=== PATIENT | female | born 2000 | race Caucasian/White ===

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

== ENCOUNTER 2020-02-17 09:41 | Emergency (ER) | payer OTHER ==
--- NOTE | 2020-02-17 09:44 | ERPHSYRPT ---
- History of Present Illness Time Seen by Provider: 02/17/20 09:44 Historian: patient, family Exam Limitations: no limitations Physician History: An obese 19-year-old white female who has an implantable control device and presents with at least 1 month history of intermittent bilateral flank pain. Patient sees her primary care physician tomorrow. Patient denies nausea vomiting, diarrhea or abdominal pain. She does have occasional dysuria. Patient denies chest pain patient denies shortness of breath. Patient has no myalgias no arthralgias. She is had no fever. She has no abnormal vaginal discharge Timing/Duration: week(s) (Over 4 weeks), intermittent Quality: aching Abdominal Pain Onset Location: flank Pain Radiation: flank (Bilateral) Severity of Pain-Max: mild Severity of Pain-Current: mild (bilateral) Modifying Factors: Improves With: other (Dysuria). Worsens With: vomiting Associated Symptoms: back (Bilateral flank), other (Dysuria) Previous symptoms: same symptoms as today Allergies/Adverse Reactions: haloperidol [From Haldol] Allergy (Verified 02/17/20 10:02) haloperidol lactate [From Haldol] Allergy (Verified 02/17/20 10:02) sulfamethoxazole [From Bactrim] Allergy (Verified 02/17/20 10:02) trimethoprim [From Bactrim] Allergy (Verified 02/17/20 10:02) Hx Tetanus, Diphtheria Vaccination/Date Given: No Hx Influenza Vaccination/Date Given: No Hx Pneumococcal Vaccination/Date Given: No Travel Risk - International Travel Have you traveled outside of the country in past 3 weeks: No - Coronavirus Screening Are you exhibiting any of the following symptoms?: No Close contact with a COVID-19 positive Pt in past 14-21 Days: No - Review of Systems Constitutional: No Symptoms Eyes: No Symptoms Ears, Nose, & Throat: No Symptoms Respiratory: No Symptoms Cardiac: No Symptoms Abdominal/Gastrointestinal: No Symptoms Genitourinary Symptoms: Dysuria Musculoskeletal: No Symptoms Skin: No Symptoms Neurological: No Symptoms Psychological: No Symptoms Endocrine: No Symptoms Hematologic/Lymphatic: No Symptoms Immunological/Allergic: No Symptoms All Other Systems: Reviewed and Negative - Past Medical History Pertinent Past Medical History: Yes Neurological History: No Pertinent History ENT History: No Pertinent History Cardiac History: No Pertinent History Respiratory History: Asthma Endocrine Medical History: No Pertinent History Musculoskeletal History: No Pertinent History GI Medical History: No Pertinent History History: No Pertinent History Psycho-Social History: Anxiety, Attention Deficit Disorder Female Reproductive Disorders: No Pertinent History Other Medical History: AUTISM, OPPOSITIONAL DEFIANT DISORDER - Past Surgical History Past Surgical History: Yes Neuro Surgical History: No Pertinent History Cardiac: No Pertinent History Respiratory: No Pertinent History Gastrointestinal: No Pertinent History Genitourinary: No Pertinent History Musculoskeletal: No Pertinent History Female Surgical History: No Pertinent History Other Surgical History: TONSILS AND ADENOIDS - Social History Smoking Status: Never smoker Exposure to second hand smoke: Yes Drug Use: none Patient Lives Alone: No - Nursing Vital Signs Nursing Vital Signs: Initial Vital Signs Temperature 98.1 F 02/17/20 09:47 Pulse Rate 66 02/17/20 09:47 Respiratory Rate 16 02/17/20 09:47 Blood Pressure 111/70 02/17/20 09:47 O2 Sat by Pulse Oximetry 97 02/17/20 09:47 Pain Scale Pain Intensity 4 - Physical Exam General Appearance: no apparent distress, alert, anxiety, obese Eye Exam: PERRL/EOMI, eyes nml inspection Ears, Nose, Throat Exam: normal ENT inspection, moist mucous membranes Neck Exam: normal inspection, non-tender, supple, full range of motion Respiratory Exam: normal breath sounds, lungs clear, airway intact, No chest tenderness, No respiratory distress Cardiovascular Exam: regular rate/rhythm, normal heart sounds, normal peripheral pulses Gastrointestinal/Abdomen Exam: soft, normal bowel sounds, No tenderness, No guarding Pelvic Exam: not done Rectal Exam: not done Back Exam: normal inspection, CVA tenderness (Lateral), No normal range of motion, No vertebral tenderness Extremity Exam: normal inspection, normal range of motion, pelvis stable Neurologic Exam: alert, oriented x 3, cooperative, 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 II-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 nml as tested, normal mood/affect, nml cerebellar function (He did call), nml station & gait Skin Exam: normal color, warm, dry Lymphatic Exam: No adenopathy SpO2 Interpretation: normal O2 Delivery: Room Air Ordered Tests: Active Orders 24 hr Category Date Time Status IV Insertion STAT Care 02/17/20 10:10 Active ABDOMEN AND PELVIS W/0 CONTRAS [CT] Stat Exams 02/17/20 10:10 Completed AMYLASE Stat Lab 02/17/20 10:50 Completed CBC W DIFF Stat Lab 02/17/20 10:50 Completed CMP Stat Lab 02/17/20 10:50 Completed LIPASE Stat Lab 02/17/20 10:50 Completed Lactic Acid Stat Lab 02/17/20 10:10 Completed UA W/RFX UR CULTURE Stat Lab 02/17/20 10:10 Uncollected Medication Summary Discontinued Medications Generic Name Dose Route Start Last Admin Trade Name Freq PRN Reason Stop Dose Admin Sodium Chloride 1,000 mls @ 999 mls/hr 02/17/20 10:10 Sodium Chloride 0.9% 1000 Ml IV 02/17/20 11:10 .Q1H1M STA Lab/Rad Data: Laboratory Result Diagrams 02/17/20 10:50 02/17/20 10:50 Laboratory Results 02/17/20 02/17/20 02/17/20 Range/Units 10:50 10:50 10:10 WBC 9.2 (4.0-10.5) K/mm3 RBC 4.95 (4.1-5.4) M/mm3 Hgb 13.3 (12.0-16.0) gm/dl Hct 41.6 (35-47) % MCV 84.0 (78-100) fl MCH 26.9 (26-32) pg MCHC 32.0 (32-36) g/dl RDW 13.7 (11.5-14.0) % Plt Count 244 (150-450) K/mm3 MPV 11.8 H (7.5-11.0) fl Gran % 63.7 (36.0-66.0) % Eos # (Auto) 0.36 (0-0.5) Absolute Lymphs (auto) 2.34 (1.0-4.6) Absolute Monos (auto) 0.61 (0.0-1.3) Lymphocytes % 25.5 (24.0-44.0) % Monocytes % 6.7 (0.0-12.0) % Eosinophils % 3.9 (0.00-5.0) % Basophils % 0.2 (0.0-0.4) % Absolute Granulocytes 5.83 (1.4-6.9) Basophils # 0.02 (0-0.4) Sodium 140 (137-145) mmol/L Potassium 4.5 (3.5-5.1) mmol/L Chloride 108 H (98-107) mmol/L Carbon Dioxide 25 (22-30) mmol/L Anion Gap 11.7 (5-15) MEQ/L BUN 8 (7-17) mg/dL Creatinine 0.69 (0.52-1.04) mg/dL Estimated GFR > 60.0 ML/MIN Glucose 103 (74-106) mg/dL Lactic Acid 1.3 (0.4-2.0) Calcium 9.3 (8.4-10.2) mg/dL Total Bilirubin 0.40 (0.2-1.3) mg/dL AST 19 (14-36) U/L ALT 14 (0-35) U/L Alkaline Phosphatase 97 (38-126) U/L Serum Total Protein 7.2 (6.3-8.2) g/dL Albumin 4.1 (3.5-5.0) g/dL Amylase 50 (30-110) U/L Lipase 68 (23-300) U/L - Progress Progress: unchanged Progress Note: 02/17/20 11:40 ct abd/pelvis: negative for acute process Counseled pt/family regarding: lab results, diagnosis, need for follow-up, rad results - Departure Departure Disposition: Home Clinical Impression: Bilateral flank pain Condition: Stable Critical Care Time: No Referrals: MARIA LUISA LUU [Primary Care Provider] - Additional Instructions: drink plenty of fluids. keep appointment with primary care physician
[2020-02-17 10:01] VITALS: O2SAT 97
[2020-02-17] MEDS ORDERED: Sodium Chloride 0.9% 1000 ML 1,000 ML IV STA (10:10)
[2020-02-17 11:04] LABS: Absolute Neutrophil Ct (ANC) 5.83 (1.4-6.9); BASOPHIL % 0.2 % (0.0-0.4); Basophil (Absolute #) 0.02 (0-0.4); Eosinophil % 3.9 % (0.00-5.0); Eosinophil (Absolute #) 0.36 (0-0.5); Hematocrit 41.6 % (35-47); Hemoglobin 13.3 gm/dl (12.0-16.0); Lymphocyte (Absolute #) 2.34 (1.0-4.6); Lymphocytes % 25.5 % (24.0-44.0); Mean Corpuscular Hemoglobin 26.9 pg (26-32); Mean Platelet Volume 11.8 fl (7.5-11.0); Monocyte (Absolute #) 0.61 (0.0-1.3); Monocytes % 6.7 % (0.0-12.0); Neutrophil % 63.7 % (36.0-66.0); Platelet Count 244 K/mm3 (150-450); Red Blood Count 4.95 M/mm3 (4.1-5.4); Red Cell Distribution Width 13.7 % (11.5-14.0); White Blood Count 9.2 K/mm3 (4.0-10.5)
[2020-02-17 11:15] LABS: ALBUMIN 4.1 g/dL (3.5-5.0); ALKALINE PHOSPHATASE 97 U/L (38-126); AMYLASE 50 U/L (30-110); ANION GAP 11.7 MEQ/L (5-15); BLOOD UREA NITROGEN 8 mg/dL (7-17); CHLORIDE 108 mmol/L (98-107); Calcium 9.3 mg/dL (8.4-10.2); Carbon Dioxide 25 mmol/L (22-30); Creatinine 1 0.69 mg/dL (0.52-1.04); Glucose 103 mg/dL (74-106); LIPASE 68 U/L (23-300); Potassium 4.5 mmol/L (3.5-5.1); SGOT/AST 19 U/L (14-36); SGPT/ALT 14 U/L (0-35); SODIUM 140 mmol/L (137-145); Total Protein 7.2 g/dL (6.3-8.2)
--- NOTE | 2020-02-17 11:32 | XRAY ---
Indication: Bilateral flank pain. Multiple contiguous axial images obtained through the abdomen and pelvis without contrast using renal stone protocol. Comparison: None Lung bases are clear. Heart is not enlarged. No renal calculus or evidence for obstructive uropathy in either system. 1.7 cm left renal cortical cyst. Noncontrasted stomach and bowel loops appear nonobstructed. Normal appendix. Previous cholecystectomy. Spleen is enlarged measuring 13.1 cm. Remaining liver, pancreas, spleen, adrenal glands, kidneys, ureters, bladder, uterus, and aorta appear unremarkable for noncontrast exam. Osseous structures intact. No ventral or inguinal hernias. Impression: 1. Negative renal calculus or evidence for obstructive uropathy. 2. Incidental left renal cyst and splenomegaly. 3. Remaining CT abdomen/pelvis without contrast exam is negative.
[2020-02-17 11:55] VITALS: BP 110/68; PULSE 90
[2020-02-17 12:06] LABS: Appearance SLIGHTLY CLOUDY (CLEAR); Bacteria RARE /HPF (NEGATIVE); Bilirubin NEGATIVE (NEGATIVE); Blood LARGE Ery/ul (0-5); Epithelial Cells RARE /HPF (FEW); Glucose NEGATIVE (NEGATIVE); Ketones NEGATIVE (NEGATIVE); Leukocyte Esterase NEGATIVE (NEGATIVE); Mucus SLIGHT /HPF (NEGATIVE); Nitrite NEGATIVE (NEGATIVE); Protein,Urine Dip NEGATIVE (Negative); RBC 0-2 /HPF (0-2); Specific Gravity 1.015 (1.005-1.025); Urobilinogen NEGATIVE mg/dL (0-1)
== END 2020-02-17 12:24 | disposition home or self-care (01) ==
LOC: ED 09:41
DX: R10.9 Unspecified abdominal pain (principal)
CPT/HCPCS: 36415; 74176; 80053; 81001; 82150; 83605; 83690; 85025; 87086; 99284

== ENCOUNTER 2021-07-11 09:19 | Emergency (ER) | payer OTHER ==
[2021-07-11] MEDS ORDERED: Reglan 10 MG/2 ML ONE (10:20)
[2021-07-11] MEDS ORDERED: TORAdol 30 mg Injection ONE (10:20)
[2021-07-11] MEDS: TORAdol 30 mg Injection IM ONE (10:22)
[2021-07-11] MEDS: Reglan 10 MG/2 ML IM ONE (10:23)
--- NOTE | 2021-07-11 10:32 | ERPHSYRPT ---
- History of Present Illness Time Seen by Provider: 07/11/21 09:22 Source: patient Exam Limitations: no limitations Patient Subjective Stated Complaint: " I started a new medication for my diabetes yesterday and I think it's making me sick. I have a headache, nausea, and I feel dizzy." Triage Nursing Assessment: Pt presents to ER with complaints of headache, nausea, and lightheadedness/dizziness that has increased since yesterday. Pt believes symptoms are from new medication she began yesterday, "Xigduo". Pt is alert and oriented x3. Ambulates without difficulty. Pt skin is pink, warm, and dry. Respirations are unlabored. Denies vomiting or diarrhea. Pt is pleasant and denies pain. Physician History: 20 years old morbidly obese female with history of diabetes mellitus on Ozempic and yesterday was started on Xigduo as well, presented in the ER with chief complaint of right-sided headache since yesterday after taking this new medication off and on, partial relief with taking Tylenol and occasional having episodes of lightheadedness. Denies any focal numbness tingling or weakness. Mild to moderate intensity dull aching headache without any significant aggravating factors. Denies any chest pain palpitations or shortness of breath. Patient also reports she was feeling a little shaky when woke up this morning and checked her blood sugar which was 102 and usually her blood 50s in the morning. Her headache is improved now and not shaky anymore. Timing/Duration: yesterday, intermittent, gradual onset, improved Quality: dullness Head Pain Location: frontal Severity of Pain-Max: moderate Severity of Pain-Current: moderate Recent Head Trauma: no recent headache/trauma Associated Symptoms: dizziness, light-headedness, nausea/vomiting, No facial pain, No fever/chills, No loss of consciousness, No nasal congestion, No nasal drainage, No neck pain, No numbness in legs/feet, No rash, No sweating, No scotoma, No seizures, No sinus infection, No sensitive to light, No speech problems, No stiff neck, No trouble walking, No vision changes, No visual disturbance, No weakness Previous symptoms: no prior history Allergies/Adverse Reactions: haloperidol [From Haldol] Allergy (Verified 07/11/21 09:40) haloperidol lactate [From Haldol] Allergy (Verified 07/11/21 09:40) sulfamethoxazole [From Bactrim] Allergy (Verified 07/11/21 09:40) trimethoprim [From Bactrim] Allergy (Verified 07/11/21 09:40) Home Medications: Bupropion HCl [Wellbutrin Xl] 1 tab PO DAILY 07/11/21 [History] Dapagliflozin/Metformin HCl [Xigduo Xr 10 mg-1,000 mg Tab] 1 tab PO DAILY 07/11/21 [History] Mecobalamin [B12 Active] 1 tab PO DAILY 07/11/21 [History] Semaglutide [Ozempic] 1 kit SQ WEEKLY 07/11/21 [History] Hx Tetanus, Diphtheria Vaccination/Date Given: Yes Hx Influenza Vaccination/Date Given: Yes Hx Pneumococcal Vaccination/Date Given: No Immunizations Up to Date: Yes Travel Risk - International Travel Have you traveled outside of the country in past 3 weeks: No - Coronavirus Screening Are you exhibiting any of the following symptoms?: No - Vaccine Status Have you recieved a Covid-19 vaccination: Yes Sales Review 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: Unknown - Vaccination Dates Dates if Unknown: unknown - Review of Systems Constitutional: Fatigue Eyes: No Symptoms Ears, Nose, & Throat: No Symptoms Respiratory: No Symptoms Cardiac: No Symptoms Abdominal/Gastrointestinal: No Symptoms Genitourinary Symptoms: No Symptoms Musculoskeletal: No Symptoms Skin: No Symptoms Neurological: Dizziness, Focal Weakness Psychological: Anxiety Endocrine: No Symptoms Hematologic/Lymphatic: No Symptoms Immunological/Allergic: No Symptoms - Past Medical History Pertinent Past Medical History: Yes Neurological History: No Pertinent History ENT History: No Pertinent History Cardiac History: No Pertinent History Respiratory History: Asthma Endocrine Medical History: Diabetes Type II Musculoskeletal History: No Pertinent History GI Medical History: No Pertinent History History: No Pertinent History Psycho-Social History: Anxiety, Attention Deficit Disorder Female Reproductive Disorders: No Pertinent History Other Medical History: AUTISM, OPPOSITIONAL DEFIANT DISORDER - Past Surgical History Past Surgical History: Yes Neuro Surgical History: No Pertinent History Cardiac: No Pertinent History Respiratory: No Pertinent History Gastrointestinal: Cholecystectomy Genitourinary: No Pertinent History Musculoskeletal: No Pertinent History Female Surgical History: No Pertinent History Other Surgical History: TONSILS AND ADENOIDS - Social History Smoking Status: Never smoker Exposure to second hand smoke: No Drug Use: none Patient Lives Alone: No - Female History Hx Last Menstrual Period: 06/23/21 Hx Now: No - Nursing Vital Signs Nursing Vital Signs: Initial Vital Signs Temperature 98.7 F 07/11/21 09:36 Pulse Rate 98 H 07/11/21 09:36 Respiratory Rate 18 07/11/21 09:36 Blood Pressure 116/84 07/11/21 09:36 O2 Sat by Pulse Oximetry 99 07/11/21 09:36 Pain Scale Pain Intensity 0 - Physical Exam General Appearance: no apparent distress, alert, anxiety Eye Exam: PERRL/EOMI, eyes nml inspection Ears, Nose, Throat Exam: normal ENT inspection, pharynx normal Neck Exam: normal inspection, non-tender, supple, full range of motion Respiratory Exam: normal breath sounds, lungs clear Cardiovascular Exam: regular rate/rhythm, normal heart sounds Gastrointestinal/Abdominal Exam: soft, No tenderness Back Exam: normal inspection, normal range of motion Extremity Exam: normal inspection, normal range of motion Mental Status Exam: alert, oriented x 3, cooperative scalp treatment operator Exam: normal hearing, normal speech, PERRL Coordination/Gait Exam: normal finger to nose, normal gait, normal cerebellar function, negative Romberg's sign Motor/Sensory Exam: no motor deficit, no sensory deficit, no pronator drift, negative Babinski's sign DTR Exam: bicep (R): 2+, bicep (L): 2+, knee (R): 2+, knee (L): 2+ Skin Exam: normal color SpO2 Interpretation: normal SpO2: 99 O2 Delivery: Room Air Ordered Tests: Active Orders 24 hr Category Date Time Status POCT Glucose Check STAT Care 07/11/21 10:32 Active POCT GLUCOSE Stat Lab 07/11/21 11:09 Completed Medication Summary Discontinued Medications Generic Name Dose Route Start Last Admin Trade Name Enmanuel PRN Reason Stop Dose Admin Ketorolac Tromethamine 30 mg 07/11/21 10:04 07/11/21 10:22 Ketorolac Tromethamine 30 Mg/Ml Inj IM 07/11/21 10:05 30 mg STAT ONE Administration Ketorolac Tromethamine Confirm 07/11/21 10:20 Ketorolac Tromethamine 30 Mg/Ml Inj Administered 07/11/21 10:21 Dose 30 mg .ROUTE .STK-MED ONE Metoclopramide HCl 10 mg 07/11/21 10:04 07/11/21 10:23 Metoclopramide Hcl 10 Mg/2 Ml Vial IM 07/11/21 10:05 10 mg STAT ONE Administration Metoclopramide HCl Confirm 07/11/21 10:20 Metoclopramide Hcl 10 Mg/2 Ml Vial Administered 07/11/21 10:21 Dose 10 mg .ROUTE .STK-MED ONE Lab/Rad Data: Laboratory Results 07/11/21 Range/Units 11:09 POC Glucometer 80 (74 to 106) mg/dL - Progress Progress: improved Air Movement: good Progress Note: 20-year-old is evaluated for headache nausea and some dizziness after taking Xigduo along with Ozempic. It is a known side effect of taking this medication with another antidiabetic meds. Her blood sugar is is 81 and given oral liquid with sugar and feeling better. I believe patient blood sugar was staying high and today was low making her Feels shaky. She is given symptomatic treatment for headache and feeling better. Nonfocal neuro exam. Do not think needs any other work-up. Recommended calling her primary edge beader Dr. Mayen and discussed the symptoms and see what he recommends about continuation of this medication. Discussed on symptoms of worsening needing return to ER which he seems understanding. Stable for discharge. 07/11/21 11:14 Blood Culture(s) Obtained: No Antibiotics given: No Counseled pt/family regarding: lab results, diagnosis, need for follow-up - Departure Departure Disposition: Home Clinical Impression: Medication side effect, Headache Condition: Stable Critical Care Time: No Referrals: MARIA LUISA GUNN [Primary Care Provider] - Follow up/PCP as directed (1-2 days for reevaluation) MADDIE MAYEN [NON-STAFF PHY W/O PRIVILEGES] - Follow up/PCP as directed (Call today and discussed the medication side effect and follow his recommendations.) Instructions: Headache, Adult (DC) Additional Instructions: Take Tylenol/ibuprofen as needed for headache. Call your edge beader to discuss about the side effects and continuation of medications. Follow-up with primary care for reevaluation. Monitor your blood sugar regularly, return to ER for worsening headache or if having numbness tingling focal weakness etc.
[2021-07-11 11:18] VITALS: BP 106/61; PULSE 86; O2SAT 95
== END 2021-07-11 11:21 | disposition home or self-care (01) ==
LOC: ED 09:19
DX: G44.40 Drug-induced headache, not elsewhere classified, not intractable (principal); T38.3X5A Adverse effect of insulin and oral hypoglycemic [antidiabetic] drugs, initial encounter; R42 Dizziness and giddiness; R11.0 Nausea; E11.8 Type 2 diabetes mellitus with unspecified complications; Z79.84 Long term (current) use of oral hypoglycemic drugs
CPT/HCPCS: 82947; 96372; 99284; J1885

== ENCOUNTER 2021-07-27 16:48 | Emergency (ER) | payer OTHER ==
[2021-07-27] MEDS ORDERED: TORAdol 30 mg Injection IM ONE (17:34)
--- NOTE | 2021-07-27 17:36 | ERPHSYRPT ---
<BRENDAVALENTEMAGNO FIGUEROA - Last Filed: 07/27/21 20:23> - History of Present Illness Patient Subjective Stated Complaint: "My throat hurts." Triage Nursing Assessment: Patient reported a four day onset of sore throat and. She reported fever at home with reported Tmax of 98.8. Pain was described as s harp. Denied any recent sick contacts. Oral mucosa reddened Timing/Duration: day(s) (3), constant, gradual onset, worse Cough Quality/Degree: mild, dry cough Possible Cause: unknown cause Modifying Factors: Worsens With: coughing Associated Symptoms: fever, chills, cough, headache, muscle aches, nasal congestion, sinus infection, sore throat Hx Tetanus, Diphtheria Vaccination/Date Given: Yes Hx Influenza Vaccination/Date Given: Yes Hx Pneumococcal Vaccination/Date Given: No <BELKYS ARANA - Last Filed: 07/28/21 21:37> - History of Present Illness Time Seen by Provider: 07/27/21 16:55 Physician History: 20 years old vaccinated against COVID-19 presented in the ER with chief complaint of sore throat for the last 3 to 4 days with associated minimal nonproductive cough with difficulty swallowing solid food. Subjective feeling of fever and chills. Generalized body aches, headache. (BELKYS ARANA) Allergies/Adverse Reactions: haloperidol [From Haldol] Allergy (Verified 07/27/21 16:58) haloperidol lactate [From Haldol] Allergy (Verified 07/27/21 16:58) sulfamethoxazole [From Bactrim] Allergy (Verified 07/27/21 16:58) trimethoprim [From Bactrim] Allergy (Verified 07/27/21 16:58) Home Medications: Bupropion HCl [Wellbutrin Xl] 1 tab PO DAILY 07/11/21 [History] Mecobalamin [B12 Active] 1 tab PO DAILY 07/11/21 [History] Semaglutide [Ozempic] 1 kit SQ WEEKLY 07/11/21 [History] Travel Risk - International Travel Have you traveled outside of the country in past 3 weeks: No - Coronavirus Screening Are you exhibiting any of the following symptoms?: No Close contact with a COVID-19 positive Pt in past 14-21 Days: No - Vaccine Status Have you recieved a Covid-19 vaccination: 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[employer] Dates Date of 2cond Vaccination (if applicable): 04/2021 <BELKYS ARANA - Last Filed: 07/28/21 21:37> - Review of Systems Respiratory: No Dyspnea, No Stridor, No Wheezing <BRENDAVALENTE HENRY - Last Filed: 07/27/21 20:23> - Review of Systems Constitutional: Fever, Chills Eyes: No Symptoms Ears, Nose, & Throat: Throat Pain, Throat Swelling, Painful Swallowing Respiratory: Cough Cardiac: No Symptoms Abdominal/Gastrointestinal: No Symptoms Genitourinary Symptoms: No Symptoms Musculoskeletal: Myalgias Skin: No Symptoms Neurological: No Symptoms Psychological: Anxiety Endocrine: No Symptoms Hematologic/Lymphatic: No Symptoms Immunological/Allergic: No Symptoms <BELKYS ARANA - Last Filed: 07/28/21 21:37> - Past Medical History Pertinent Past Medical History: Yes Neurological History: No Pertinent History ENT History: No Pertinent History Cardiac History: No Pertinent History Respiratory History: Asthma Endocrine Medical History: Diabetes Type II Musculoskeletal History: No Pertinent History GI Medical History: No Pertinent History History: No Pertinent History Psycho-Social History: Anxiety, Attention Deficit Disorder Female Reproductive Disorders: No Pertinent History Other Medical History: AUTISM, OPPOSITIONAL DEFIANT DISORDER - Past Surgical History Past Surgical History: Yes Neuro Surgical History: No Pertinent History Cardiac: No Pertinent History Respiratory: No Pertinent History Gastrointestinal: Cholecystectomy Genitourinary: No Pertinent History Musculoskeletal: No Pertinent History Female Surgical History: No Pertinent History Other Surgical History: TONSILS AND ADENOIDS - Social History Smoking Status: Never smoker Exposure to second hand smoke: No Drug Use: none Patient Lives Alone: No - Female History Hx Now: (unkn) <BELKYS ARANA - Last Filed: 07/28/21 21:37> - Physical Exam General Appearance: no apparent distress, alert, anxiety Eye Exam: PERRL/EOMI, eyes nml inspection Ears, Nose, Throat Exam: moist mucous membranes, pharyngeal erythema Neck Exam: normal inspection, supple, full range of motion Respiratory Exam: normal breath sounds, lungs clear Cardiovascular Exam: regular rate/rhythm, normal heart sounds Back Exam: normal inspection, normal range of motion Extremity Exam: normal inspection, normal range of motion Neurologic Exam: alert, oriented x 3, cooperative Skin Exam: normal color SpO2 Interpretation: normal SpO2: 100 O2 Delivery: Room Air <BELKYS ARANA - Last Filed: 07/28/21 21:37> - Nursing Vital Signs Nursing Vital Signs: Initial Vital Signs Temperature 99.1 F 07/27/21 16:48 Pulse Rate 99 H 07/27/21 16:48 Respiratory Rate 20 07/27/21 16:48 Blood Pressure 131/79 07/27/21 16:48 O2 Sat by Pulse Oximetry 100 07/27/21 16:48 Pain Scale Pain Intensity 4 - Course Nursing assessment & vital signs reviewed: Yes - Radiology Exams Chest X-ray Interpretation: Reviewed by me, Other (no major infiltrate but possible scattered interstitial) <VALENTE GUTIERREZ - Last Filed: 07/27/21 20:23> Ordered Tests: Medication Summary Discontinued Medications Generic Name Dose Route Start Last Admin Trade Name Freq PRN Reason Stop Dose Admin Hydrocodone Bitart/Acetaminophen 15 ml 07/27/21 19:20 07/27/21 19:33 Hydrocodone/Acetaminophen 5 Ml Udcup PO 07/27/21 19:21 15 ml STAT STA Administration Hydrocodone Bitart/Acetaminophen Confirm 07/27/21 19:30 Hydrocodone/Acetaminophen 5 Ml Udcup Administered 07/27/21 19:31 Dose 15 ml .ROUTE .STK-MED ONE Azithromycin 500 mg 07/27/21 19:41 07/27/21 19:44 Azithromycin 250 Mg Tablet PO 07/27/21 19:42 500 mg STAT ONE Administration Azithromycin Confirm 07/27/21 19:44 Azithromycin 250 Mg Tablet Administered 07/27/21 19:45 Dose 500 mg .ROUTE .STK-MED ONE Dexamethasone 6 mg 07/28/21 10:00 07/27/21 20:36 Dexamethasone 4 Mg Tablet PO 08/27/21 09:59 6 mg DAILY NICHOLAS Administration Dexamethasone Confirm 07/27/21 20:33 Dexamethasone 4 Mg Tablet Administered 07/27/21 20:34 Dose 8 mg .ROUTE .STK-MED ONE Dexamethasone Sodium Phosphate 10 mg 07/27/21 19:20 07/27/21 19:33 Dexamethasone Sod Phosphate 10 Mg/Ml PO 07/27/21 19:21 10 mg STAT ONE Administration Dexamethasone Sodium Phosphate Confirm 07/27/21 19:30 Dexamethasone Sod Phosphate 10 Mg/Ml Administered 07/27/21 19:31 Dose 10 mg .ROUTE .STK-MED ONE Ketorolac Tromethamine 30 mg 07/27/21 17:34 07/27/21 17:39 Ketorolac Tromethamine 30 Mg/Ml Inj IM 07/27/21 17:35 30 mg STAT ONE Administration Ketorolac Tromethamine Confirm 07/27/21 17:37 Ketorolac Tromethamine 30 Mg/Ml Inj Administered 07/27/21 17:38 Dose 30 mg .ROUTE .STK-MED ONE Lab/Rad Data: Laboratory Results 07/27/21 07/27/21 07/27/21 Range/Units 19:06 18:02 17:40 POC Glucometer 76 (74 to 106) mg/dL Influenza Type A Ag NEGATIVE (NEGATIVE) Influenza Type B Ag NEGATIVE (NEGATIVE) RSV (PCR) NEGATIVE (Negative) SARS-CoV-2 (PCR) POSITIVE A (NEGATIVE) Group A Strep Antibody NOT DETECTED (NEGATIVE) - Progress Progress: improved, re-examined Air Movement: good Blood Culture(s) Obtained: No Antibiotics given: Yes Counseled pt/family regarding: lab results, diagnosis, need for follow-up, rad results <VALENTE GUTIERREZ - Last Filed: 07/27/21 20:23> - Progress Progress: improved Air Movement: good Blood Culture(s) Obtained: No Counseled pt/family regarding: lab results, diagnosis, need for follow-up, rad results <BELKYS ARANA - Last Filed: 07/28/21 21:37> - Progress Progress Note: 07/27/21 18:48 pt taken over at change of shift from Dr. Tilley after discussion of pending labs and findings. She is swallowing saliva OK in ER and feels well ant cervical nontender and floor of mouth and digastric triangle supple and nontender. 07/27/21 19:10 covid/flu order got missed previously and this will take a while to get result but pt has aches, and wishes to continue. Strep is negative. 07/27/21 20:11 pt advised of COvid and to SQ and follow-up PMD and return if not improving or other symptoms or concerns. discussed additional therapy and pt wishes decadron but wishes to wait and see prior to other such as AC, and antibodies do not seem indicated. (VLAENTE GUTIERREZ) 07/27/21 she is given Toradol for symptomatic relief. Lungs bilateral clear to auscultation. Negative strep. Pending flu and Covid. No acute findings on chest x-ray reviewed by me, official report is pending. Discussed with Dr. Bloom and he would follow-up on the results. (BELKYS ARANA) - Departure Departure Disposition: Home Critical Care Time: No <VALENTE GUTIERREZ - Last Filed: 07/27/21 20:23> - Departure Departure Disposition: Home Critical Care Time: No <BELKYS ARANA - Last Filed: 07/28/21 21:37> - Departure Clinical Impression: Acute pharyngitis, COVID-19 Condition: Good Referrals: MARIA LUISA GUNN [Primary Care Provider] - Follow Up with PCP/3 days Instructions: Sore Throat, Adult (DC), Coronavirus Disease 2019 (COVID-19) (DC) Additional Instructions: Take Tylenol/ibuprofen as needed for aches pains. Warm salt water gargles. Drink plenty of fluids to keep yourself well-hydrated. Return to ER for worsening sore throat, persistent high-grade fever/worsening cough or if develop shortness of breath etc. You have tested positive for Covid 19 and need to self quarantine per instructions. THere is an increased risk for complications to observe for and return if any symptoms, such as swelling of legs or redness as well. Also advise close contacts to self quarantine and test if symptoms occur. Return meantime if trouble swallowing or short of breath or any other concerns. Prescriptions: Dexamethasone 4 mg [Decadron 4 MG] 6 mg PO DAILY #20 tablet
[2021-07-27] MEDS ORDERED: TORAdol 30 mg Injection ONE (17:37)
--- NOTE | 2021-07-27 17:43 | XRAY ---
Indication: Fever and cough. Suspect Covid 19. Comparison: March 16, 2017. Portable chest continues to demonstrate normal heart, lungs, and bony thorax.
[2021-07-27] MEDS ORDERED: DECADRON 10MG INJ. PO ONE (19:20)
[2021-07-27] MEDS ORDERED: HYDROCODONE-ACETAMIN 2.5-108/5 ML SOLUTION PO STA (19:20)
[2021-07-27] MEDS ORDERED: HYDROCODONE-ACETAMIN 2.5-108/5 ML SOLUTION ONE (19:30)
[2021-07-27] MEDS ORDERED: DECADRON 10MG INJ. ONE (19:30)
[2021-07-27] MEDS ORDERED: Zithromax 250 MG TABLET PO ONE (19:41)
[2021-07-27] MEDS ORDERED: Zithromax 250 MG TABLET ONE (19:44)
[2021-07-27 19:47] LABS: INFLUENZA A NEGATIVE (NEGATIVE); INFLUENZA B NEGATIVE (NEGATIVE); RESPIRATORY SYNCTIAL VIRUS NEGATIVE (Negative)
[2021-07-27 19:53] LABS: SARS-CoV-2 Xpert Express POSITIVE (NEGATIVE)
[2021-07-27 20:14] VITALS: BP 109/80; PULSE 90
[2021-07-27] MEDS ORDERED: Decadron 4 MG ONE (20:33)
[2021-07-28] MEDS ORDERED: Decadron 4 MG PO SCH (10:00)
[2021-07-28 21:38] VITALS: O2SAT 100
== END 2021-07-27 20:42 | disposition home or self-care (01) ==
LOC: ED 16:48
DX: U07.1 COVID-19 (principal); J02.9 Acute pharyngitis, unspecified; R05.9 Cough, unspecified; R51.9 Headache, unspecified; M79.10 Myalgia, unspecified site; E11.9 Type 2 diabetes mellitus without complications; Z79.899 Other long term (current) drug therapy; Z79.52 Long term (current) use of systemic steroids
CPT/HCPCS: 0241U; 71045; 82947; 87651; 96372; 99284; 99291; J1100; J1885; A9270-GY

== ENCOUNTER 2021-07-31 21:25 | Emergency (ER) | payer OTHER ==
--- NOTE | 2021-07-31 22:54 | ERPHSYRPT ---
- History of Present Illness Time Seen by Provider: 07/31/21 22:54 Source: patient Exam Limitations: no limitations Physician History: The patient is a 20-year-old female who presents with a chief complaint of dizziness. Onset reportedly was this evening. In addition to her dizziness she also complained of a headache, some congestion. She stated she was scared to go to sleep because she feels as if her dizziness gets worse however she does endorse that her dizziness abates whenever she lies flat. There is no reported nausea, vomiting, vaginal bleeding or vaginal discharge in addition to any dysuria or diarrhea. The patient dates she has been vaccinated for COVID and is not worried about a Covid-19 infection. Associated Symptoms: No nausea, No vomiting, No abdominal pain, No shortness of breath, No diaphoresis, No chills, No chest pain, No fever, No syncope, No seizure Allergies/Adverse Reactions: haloperidol [From Haldol] Allergy (Verified 07/31/21 23:00) haloperidol lactate [From Haldol] Allergy (Verified 07/31/21 23:00) sulfamethoxazole [From Bactrim] Allergy (Verified 07/31/21 23:00) trimethoprim [From Bactrim] Allergy (Verified 07/31/21 23:00) Home Medications: Bupropion HCl [Wellbutrin Xl] 1 tab PO DAILY 07/11/21 [History] Mecobalamin [B12 Active] 1 tab PO DAILY 07/11/21 [History] Semaglutide [Ozempic] 1 kit SQ WEEKLY 07/11/21 [History] Hx Tetanus, Diphtheria Vaccination/Date Given: Yes Hx Influenza Vaccination/Date Given: Yes Hx Pneumococcal Vaccination/Date Given: No Travel Risk - Vaccine Status Have you recieved a Covid-19 vaccination: Yes 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[employer] - Vaccination Dates Date of 2cond Vaccination (if applicable): 04/2021 - Review of Systems Constitutional: Fatigue, No Fever, No Chills Eyes: No Eye Pain Respiratory: No Dyspnea Cardiac: No Chest Pain, No Syncope Abdominal/Gastrointestinal: No Abdominal Pain, No Nausea, No Vomiting Neurological: Dizziness, Headache, No Focal Weakness, No Gait Changes, No Vertigo Psychological: Anxiety Hematologic/Lymphatic: No Symptoms Immunological/Allergic: No Symptoms All Other Systems: Reviewed and Negative - Past Medical History Pertinent Past Medical History: Yes Neurological History: No Pertinent History ENT History: No Pertinent History Cardiac History: No Pertinent History Respiratory History: Asthma Endocrine Medical History: Diabetes Type II Musculoskeletal History: No Pertinent History GI Medical History: No Pertinent History History: No Pertinent History Psycho-Social History: Anxiety, Attention Deficit Disorder Female Reproductive Disorders: No Pertinent History Other Medical History: AUTISM, OPPOSITIONAL DEFIANT DISORDER - Past Surgical History Past Surgical History: Yes Neuro Surgical History: No Pertinent History Cardiac: No Pertinent History Respiratory: No Pertinent History Gastrointestinal: Cholecystectomy Genitourinary: No Pertinent History Musculoskeletal: No Pertinent History Female Surgical History: No Pertinent History Other Surgical History: TONSILS AND ADENOIDS - Social History Smoking Status: Never smoker Exposure to second hand smoke: No Drug Use: none Patient Lives Alone: No - Nursing Vital Signs Nursing Vital Signs: Initial Vital Signs Temperature 97.8 F 07/31/21 23:01 Pulse Rate 88 07/31/21 23:01 Respiratory Rate 18 07/31/21 23:01 Blood Pressure 108/75 07/31/21 23:01 O2 Sat by Pulse Oximetry 100 07/31/21 23:01 Pain Scale Pain Intensity 2 - Physical Exam General Appearance: no apparent distress, alert, obese Eye Exam: PERRL/EOMI, eyes nml inspection, other (No nystagmus), No scleral icterus, No pale conjunctivae, No photophobia, No EOM palsy/anisocoria Ears, Nose, Throat Exam: normal ENT inspection, TMs normal, pharynx normal, moist mucous membranes Neck Exam: normal inspection, non-tender, supple, No meningismus Respiratory Exam: normal breath sounds, lungs clear, airway intact, No chest tenderness, No respiratory distress Cardiovascular Exam: regular rate/rhythm, normal heart sounds, normal peripheral pulses, capillary refill <2 sec, No murmur, No friction rub, No gallop Gastrointestinal/Abdomen Exam: soft Pelvic Exam: not done Rectal Exam: deferred Extremity Exam: normal inspection, other (No asymmetric lower extremity swelling, calf tenderness or erythema to suggest DVT.) Neurologic Exam: alert, oriented x 3 Skin Exam: normal color, warm, dry, No rash SpO2 Interpretation: normal O2 Delivery: Room Air - Course Nursing assessment & vital signs reviewed: Yes EKG Interpreted by Me: RATE, Sinus Rhythm, NORMAL AXIS, NORMAL INTERVALS, NORMAL QRS, Other (Negative for acute myocardial ischemia or injury pattern) Ordered Tests: Active Orders 24 hr Category Date Time Status EKG-ER Only STAT Care 07/31/21 23:28 Completed IV Insertion STAT Care 07/31/21 23:28 Completed BMP Stat Lab 07/31/21 23:45 Completed CBC W DIFF Stat Lab 07/31/21 23:45 Completed HCG,QUALITATIVE URINE Stat Lab 08/01/21 00:27 Completed UA W/RFX UR CULTURE Stat Lab 08/01/21 00:27 Completed Medication Summary Discontinued Medications Generic Name Dose Route Start Last Admin Trade Name Enmanuel PRN Reason Stop Dose Admin Sodium Chloride 1,000 mls @ 999 mls/hr 07/31/21 23:28 08/01/21 01:21 Sodium Chloride 0.9% 1000 Ml IV 08/01/21 00:28 Not Given .Q1H1M STA Lab/Rad Data: Laboratory Result Diagrams 07/31/21 23:45 07/31/21 23:45 Laboratory Results 08/01/21 08/01/21 07/31/21 Range/Units 00:27 00:27 23:45 WBC (4.0-10.5) K/mm3 RBC (4.1-5.4) M/mm3 Hgb (12.0-16.0) gm/dl Hct (35-47) % MCV (78-100) fl MCH (26-32) pg MCHC (32-36) g/dl RDW (11.5-14.0) % Plt Count (150-450) K/mm3 MPV (7.5-11.0) fl Gran % (36.0-66.0) % Eos # (Auto) (0-0.5) Absolute Lymphs (auto) (1.0-4.6) Absolute Monos (auto) (0.0-1.3) Lymphocytes % (24.0-44.0) % Monocytes % (0.0-12.0) % Eosinophils % (0.00-5.0) % Basophils % (0.0-0.4) % Absolute Granulocytes (1.4-6.9) Basophils # (0-0.4) Sodium 138 (137-145) mmol/L Potassium 3.8 (3.5-5.1) mmol/L Chloride 101 (98-107) mmol/L Carbon Dioxide 27 (22-30) mmol/L Anion Gap 13.8 (5-15) MEQ/L BUN 12 (7-17) mg/dL Creatinine 0.82 (0.52-1.04) mg/dL Estimated GFR > 60.0 ML/MIN Glucose 105 (74-106) mg/dL Calcium 9.2 (8.4-10.2) mg/dL Urine Color YELLOW (YELLOW) Urine Appearance SLIGHTLY CLOUDY (CLEAR) Urine pH 6.0 (5-6) Ur Specific [place] 1.027 (1.005-1.025) Urine Protein 30 (Negative) Urine Ketones NEGATIVE (NEGATIVE) Urine Blood NEGATIVE (0-5) Genaro/ul Urine Nitrite NEGATIVE (NEGATIVE) Urine Bilirubin NEGATIVE (NEGATIVE) Urine Urobilinogen NEGATIVE (0-1) mg/dL Ur Leukocyte Esterase NEGATIVE (NEGATIVE) Urine WBC (Auto) NONE (0-5) /HPF Urine RBC (Auto) NONE (0-2) /HPF U Epithel Cells (Auto) RARE (FEW) /HPF Urine Bacteria (Auto) NONE (NEGATIVE) /HPF Urine Mucus (Auto) SLIGHT (NEGATIVE) /HPF Urine Culture Reflexed NO (NO) Urine Glucose NEGATIVE (NEGATIVE) mg/dL Urine HCG, Qual NEGATIVE (Negative) 07/31/21 Range/Units 23:45 WBC 7.2 (4.0-10.5) K/mm3 RBC 5.39 (4.1-5.4) M/mm3 Hgb 14.7 (12.0-16.0) gm/dl Hct 46.5 (35-47) % MCV 86.3 (78-100) fl MCH 27.3 (26-32) pg MCHC 31.6 L (32-36) g/dl RDW 13.4 (11.5-14.0) % Plt Count 250 (150-450) K/mm3 MPV 11.7 H (7.5-11.0) fl Gran % 48.2 (36.0-66.0) % Eos # (Auto) 0.09 (0-0.5) Absolute Lymphs (auto) 2.80 (1.0-4.6) Absolute Monos (auto) 0.81 (0.0-1.3) Lymphocytes % 39.1 (24.0-44.0) % Monocytes % 11.3 (0.0-12.0) % Eosinophils % 1.3 (0.00-5.0) % Basophils % 0.1 (0.0-0.4) % Absolute Granulocytes 3.45 (1.4-6.9) Basophils # 0.01 (0-0.4) Sodium (137-145) mmol/L Potassium (3.5-5.1) mmol/L Chloride (98-107) mmol/L Carbon Dioxide (22-30) mmol/L Anion Gap (5-15) MEQ/L BUN (7-17) mg/dL Creatinine (0.52-1.04) mg/dL Estimated GFR ML/MIN Glucose (74-106) mg/dL Calcium (8.4-10.2) mg/dL Urine Color (YELLOW) Urine Appearance (CLEAR) Urine pH (5-6) Ur Specific [place] (1.005-1.025) Urine Protein (Negative) Urine Ketones (NEGATIVE) Urine Blood (0-5) Genaro/ul Urine Nitrite (NEGATIVE) Urine Bilirubin (NEGATIVE) Urine Urobilinogen (0-1) mg/dL Ur Leukocyte Esterase (NEGATIVE) Urine WBC (Auto) (0-5) /HPF Urine RBC (Auto) (0-2) /HPF U Epithel Cells (Auto) (FEW) /HPF Urine Bacteria (Auto) (NEGATIVE) /HPF Urine Mucus (Auto) (NEGATIVE) /HPF Urine Culture Reflexed (NO) Urine Glucose (NEGATIVE) mg/dL Urine HCG, Qual (Negative) - Progress Progress: improved Progress Note: 08/01/21 01:16 The patient is tolerating p.o. and her work-up is relatively benign. I believe she is safe to be discharged home. 08/01/21 03:15 The patient presents with a complaint of dizziness and orthostasis which is likely a peripheral etiology. Of note, the patient was recently seen in emergency department and tested positive for COVID-19 and was treated with steroids and antibiotics. She had no hypoxia, increased work of breathing and her lung sounds are clinical bilateral and my suspicion for Covid pneumonia is low at this time. Also have a low suspicion for PE or ACS equivalent and therefore imaging of her chest to include CTA was deferred. Is certainly possible the patient may be suffering from a mild dehydration component given her symptoms. She was able to drink oral fluids in the emergency department for rehydration. Her laboratory work-up was relatively benign to include CBC, BMP, UA and UPT. I believe the patient can be safely discharged home for further work-up and management by her PCP if needed. Counseled pt/family regarding: lab results, diagnosis, need for follow-up - Departure Departure Disposition: Home Clinical Impression: Dizziness, Orthostatic dizziness Condition: Good Critical Care Time: No Referrals: MARIA LUISA GUNN [Primary Care Provider] - Follow up/PCP as directed Instructions: Dizziness, Nonvertigo, (DC)
[2021-07-31] MEDS ORDERED: Sodium Chloride 0.9% 1000 ML 1,000 ML IV STA (23:28)
[2021-07-31 23:55] LABS: Absolute Neutrophil Ct (ANC) 3.45 (1.4-6.9); BASOPHIL % 0.1 % (0.0-0.4); Basophil (Absolute #) 0.01 (0-0.4); Eosinophil % 1.3 % (0.00-5.0); Eosinophil (Absolute #) 0.09 (0-0.5); Hematocrit 46.5 % (35-47); Hemoglobin 14.7 gm/dl (12.0-16.0); Lymphocytes % 39.1 % (24.0-44.0); Mean Cell Volume 86.3 fl (78-100); Mean Corpuscular Hemoglobin 27.3 pg (26-32); Mean Corpuscular Hgb Concent. 31.6 g/dl (32-36); Mean Platelet Volume 11.7 fl (7.5-11.0); Monocyte (Absolute #) 0.81 (0.0-1.3); Monocytes % 11.3 % (0.0-12.0); Neutrophil % 48.2 % (36.0-66.0); Platelet Count 250 K/mm3 (150-450); Red Blood Count 5.39 M/mm3 (4.1-5.4); Red Cell Distribution Width 13.4 % (11.5-14.0); White Blood Count 7.2 K/mm3 (4.0-10.5)
[2021-08-01 00:11] LABS: ANION GAP 13.8 MEQ/L (5-15); BLOOD UREA NITROGEN 12 mg/dL (7-17); CHLORIDE 101 mmol/L (98-107); Calcium 9.2 mg/dL (8.4-10.2); Carbon Dioxide 27 mmol/L (22-30); Creatinine 1 0.82 mg/dL (0.52-1.04); EST GLOMERULAR FILTRATION RATE > 60.0 ML/MIN; Glucose 105 mg/dL (74-106); Potassium 3.8 mmol/L (3.5-5.1); SODIUM 138 mmol/L (137-145)
[2021-08-01 00:57] LABS: Appearance SLIGHTLY CLOUDY (CLEAR); Bilirubin NEGATIVE (NEGATIVE); Blood NEGATIVE Ery/ul (0-5); Epithelial Cells RARE /HPF (FEW); Glucose NEGATIVE (NEGATIVE); Ketones NEGATIVE (NEGATIVE); Leukocyte Esterase NEGATIVE (NEGATIVE); Mucus SLIGHT /HPF (NEGATIVE); Nitrite NEGATIVE (NEGATIVE); Protein,Urine Dip 30 (Negative); Specific Gravity 1.027 (1.005-1.025); Urobilinogen NEGATIVE mg/dL (0-1)
[2021-08-01 01:09] VITALS: BP 102/74; PULSE 84; O2SAT 100
== END 2021-08-01 01:27 | disposition home or self-care (01) ==
LOC: ED 21:25
DX: I95.1 Orthostatic hypotension (principal); R42 Dizziness and giddiness; R51.9 Headache, unspecified; E11.9 Type 2 diabetes mellitus without complications; Z79.899 Other long term (current) drug therapy
CPT/HCPCS: 36415; 80048; 81001; 84703; 85025; 93005; 99284

== ENCOUNTER 2021-12-24 00:30 | Emergency (ER) | payer OTHER ==
[2021-12-24 00:53] VITALS: O2SAT 100
[2021-12-24] MEDS: BABY ASPIRIN 81 MG CHEW PO ONE (00:55)
--- NOTE | 2021-12-24 01:03 | ERPHSYRPT ---
- History of Present Illness Time Seen by Provider: 12/24/21 00:34 Source: patient Exam Limitations: no limitations Patient Subjective Stated Complaint: pt states "I started a new medication today and about an hour ago, it started feeling like my heart was racing and my face felt flushed. The medication is for my blood pressure cause it can get low." Triage Nursing Assessment: Pt presents to ER via wheelchair, pt able to ambulate to cot from wheelchair by self, pt c/o "heart beating fast" face flushing and redness, pt alert and oriented x3, vitals wnl, skin color pink, warm, and dry, pt was started on midodrine today and has only taken one dose at 9 am this morning Physician History: 21 years old female with history of orthostatic dizziness started on midodrine and have taken first dose tonight resented in the ER with sudden onset feeling of palpitation, facial flushing and tingling sensation in the left face, generalized weakness fatigue and tiredness. It lasted for almost an hour and started to improve. Currently patient denies having any palpitation, chest pain or shortness of breath. Timing/Duration: today, sudden, improved Severity: moderate Modifying Factors: Improves With: rest Associated Symptoms: weakness Allergies/Adverse Reactions: haloperidol [From Haldol] Allergy (Verified 12/24/21 00:41) haloperidol lactate [From Haldol] Allergy (Verified 12/24/21 00:41) sulfamethoxazole [From Bactrim] Allergy (Verified 12/24/21 00:41) trimethoprim [From Bactrim] Allergy (Verified 12/24/21 00:41) Home Medications: Bupropion HCl [Wellbutrin Xl] 1 tab PO DAILY 07/11/21 [History] Mecobalamin [B12 Active] 1 tab PO DAILY 07/11/21 [History] Semaglutide [Ozempic] 1 kit SQ WEEKLY 07/11/21 [History] Midodrine HCl 2.5 mg OINH DAILY 12/24/21 [History] Hx Tetanus, Diphtheria Vaccination/Date Given: Yes Hx Influenza Vaccination/Date Given: Yes Hx Pneumococcal Vaccination/Date Given: No Immunizations Up to Date: Yes Travel Risk - International Travel Have you traveled outside of the country in past 3 weeks: No - Coronavirus Screening Are you exhibiting any of the following symptoms?: No Close contact with a COVID-19 positive Pt in past 14-21 Days: No - Vaccine Status Have you recieved a Covid-19 vaccination: Yes 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 - Vaccination Dates Date of 2cond Vaccination (if applicable): 04/2021 - Review of Systems Constitutional: No Symptoms Eyes: No Symptoms Ears, Nose, & Throat: No Symptoms Respiratory: No Symptoms Cardiac: Palpitations Abdominal/Gastrointestinal: No Symptoms Genitourinary Symptoms: No Symptoms Musculoskeletal: No Symptoms Skin: No Symptoms Neurological: Sensory Changes Psychological: No Symptoms Endocrine: No Symptoms Hematologic/Lymphatic: No Symptoms Immunological/Allergic: No Symptoms - Past Medical History Pertinent Past Medical History: Yes Neurological History: No Pertinent History ENT History: No Pertinent History Cardiac History: No Pertinent History Respiratory History: Asthma Endocrine Medical History: Diabetes Type II Musculoskeletal History: No Pertinent History GI Medical History: No Pertinent History History: No Pertinent History Psycho-Social History: Anxiety, Attention Deficit Disorder Female Reproductive Disorders: No Pertinent History Other Medical History: AUTISM, OPPOSITIONAL DEFIANT DISORDER - Past Surgical History Past Surgical History: Yes Neuro Surgical History: No Pertinent History Cardiac: No Pertinent History Respiratory: No Pertinent History Gastrointestinal: Cholecystectomy Genitourinary: No Pertinent History Musculoskeletal: No Pertinent History Female Surgical History: No Pertinent History Other Surgical History: TONSILS AND ADENOIDS - Social History Smoking Status: Current every day smoker Exposure to second hand smoke: No Drug Use: none Patient Lives Alone: No - Female History Hx Last Menstrual Period: 12/01/21 Hx Now: No - Nursing Vital Signs Nursing Vital Signs: Initial Vital Signs Temperature 98.2 F 12/24/21 00:43 Pulse Rate 90 12/24/21 00:43 Respiratory Rate 21 12/24/21 00:43 Blood Pressure 128/85 12/24/21 00:43 O2 Sat by Pulse Oximetry 100 12/24/21 00:43 Pain Scale Pain Intensity 0 - Physical Exam General Appearance: no apparent distress, alert, anxiety Eye Exam: PERRL/EOMI, eyes nml inspection Ears, Nose, Throat Exam: normal ENT inspection, TMs normal, pharynx normal, moist mucous membranes Neck Exam: normal inspection, non-tender, supple, full range of motion Respiratory Exam: normal breath sounds, lungs clear Cardiovascular Exam: regular rate/rhythm, normal heart sounds Gastrointestinal/Abdomen Exam: soft, normal bowel sounds, No tenderness Back Exam: normal inspection, normal range of motion Extremity Exam: normal inspection, normal range of motion, pelvis stable Neurologic Exam: alert, oriented x 3, cooperative, 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 nml as tested, nml cerebellar function, nml station & gait, sensation nml, No normal mood/affect (Anxious) Skin Exam: normal color SpO2 Interpretation: normal SpO2: 100 O2 Delivery: Room Air Ordered Tests: Active Orders 24 hr Category Date Time Status Direct Service Professional STAT Care 12/24/21 00:50 Active EKG-ER Only STAT Care 12/24/21 00:50 Active IV Insertion STAT Care 12/24/21 00:50 Active CHEST 1 VIEW (PORTABLE) Stat Exams 12/24/21 00:50 Ordered CBC W DIFF Stat Lab 12/24/21 00:50 Ordered CMP Stat Lab 12/24/21 00:50 Ordered TROPONIN Q3H Lab 12/24/21 01:00 Ordered TROPONIN Q3H Lab 12/24/21 04:00 Ordered TROPONIN Q3H Lab 12/24/21 07:00 Ordered TROPONIN Q3H Lab 12/24/21 10:00 Ordered TROPONIN Q3H Lab 12/24/21 13:00 Ordered Medication Summary Discontinued Medications Generic Name Dose Route Start Last Admin Trade Name Freq PRN Reason Stop Dose Admin Aspirin 324 mg 12/24/21 00:50 12/24/21 00:55 Aspirin 81 Mg Tab.Chew PO 12/24/21 00:51 324 mg STAT ONE Administration - Progress Progress: improved Counseled pt/family regarding: lab results, diagnosis, need for follow-up, rad results - Departure Departure Disposition: Home Clinical Impression: Heart palpitations, Medication side effect Condition: Stable Critical Care Time: No Referrals: MARIA LUISA GUNN [Primary Care Provider] - Follow up/PCP as directed (1-2 days for reevaluation) Instructions: Palpitations (DC) Additional Instructions: Drink plenty of fluids to keep yourself well-hydrated. Follow-up with your primary care for reevaluation. Return to ER if again having palpitation, chest pain shortness of breath etc.
[2021-12-24 01:29] LABS: Absolute Neutrophil Ct (ANC) 4.01 x10^3/uL (1.4-6.9); Basophil (Absolute #) 0.03 x10^3/uL (0-0.4); Eosinophil % 2.7 % (0.00-5.0); Eosinophil (Absolute #) 0.23 x10^3/uL (0-0.5); Hematocrit 37.9 % (35-47); Hemoglobin 12.3 g/dL (12.0-16.0); Lymphocyte (Absolute #) 3.41 x10^3/uL (1.0-4.6); Lymphocytes % 40.5 % (24.0-44.0); Mean Cell Volume 87.1 fL (78-100); Mean Corpuscular Hemoglobin 28.3 pg (26-32); Mean Corpuscular Hgb Concent. 32.5 g/dL (32-36); Mean Platelet Volume 12.2 fL (7.5-11.0); Monocytes % 8.3 % (0.0-12.0); Neutrophil % 47.7 % (36.0-66.0); Platelet Count 219 x10^3/uL (150-450); Red Blood Count 4.35 x10^6/uL (4.1-5.4); Red Cell Distribution Width 13.3 % (11.5-14.0); White Blood Count 8.4 x10^3/uL (4.0-10.5)
[2021-12-24 01:36] LABS: ALBUMIN 3.9 g/dL (3.5-5.0); ALKALINE PHOSPHATASE 68 U/L (38-126); ANION GAP 12.6 MEQ/L (5-15); BLOOD UREA NITROGEN 11 mg/dL (7-17); CHLORIDE 107 mmol/L (98-107); Calcium 9.1 mg/dL (8.4-10.2); Carbon Dioxide 23 mmol/L (22-30); Creatinine 1 0.77 mg/dL (0.52-1.04); EST GLOMERULAR FILTRATION RATE > 60.0 ML/MIN; Glucose 99 mg/dL (74-106); Potassium 3.7 mmol/L (3.5-5.1); SGOT/AST 21 U/L (14-36); SGPT/ALT 13 U/L (0-35); SODIUM 139 mmol/L (137-145); Total Protein 6.7 g/dL (6.3-8.2)
[2021-12-24 02:26] VITALS: BP 94/74; PULSE 88
--- NOTE | 2021-12-24 08:52 | XRAY ---
Indication: Palpitations. Comparison: July 27, 2021. Portable chest again demonstrates normal heart, lungs, and bony thorax.
== END 2021-12-24 02:26 | disposition home or self-care (01) ==
LOC: ED 00:30
DX: R00.2 Palpitations (principal); T44.4X5A Adverse effect of predominantly alpha-adrenoreceptor agonists, initial encounter; R23.2 Flushing; R53.1 Weakness; R53.83 Other fatigue; E11.9 Type 2 diabetes mellitus without complications; F84.0 Autistic disorder; Z79.84 Long term (current) use of oral hypoglycemic drugs; Z79.899 Other long term (current) drug therapy; Z72.0 Tobacco use
CPT/HCPCS: 36000; 36415; 71045; 80053; 84484; 85025; 93005; 93041; 99284; A9270-GY

== ENCOUNTER 2022-07-01 21:46 | Emergency (ER) | payer OTHER ==
[2022-07-01 22:19] LABS: Basophil (Absolute #) 0.04 x10^3/uL (0-0.4); Eosinophil % 1.5 % (0.00-5.0); Eosinophil (Absolute #) 0.16 x10^3/uL (0-0.5); Hemoglobin 13.1 g/dL (12.0-16.0); Lymphocyte (Absolute #) 3.93 x10^3/uL (1.0-4.6); Lymphocytes % 36.1 % (24.0-44.0); Mean Cell Volume 87.6 fL (78-100); Mean Platelet Volume 11.4 fL (7.5-11.0); Monocyte (Absolute #) 0.82 x10^3/uL (0.0-1.3); Monocytes % 7.5 % (0.0-12.0); Neutrophil % 54.1 % (36.0-66.0); Platelet Count 270 x10^3/uL (150-450); Red Blood Count 4.68 x10^6/uL (4.1-5.4); Red Cell Distribution Width 12.6 % (11.5-14.0); White Blood Count 10.9 x10^3/uL (4.0-10.5)
--- NOTE | 2022-07-01 22:41 | ERPHSYRPT ---
- History of Present Illness Time Seen by Provider: 07/01/22 22:36 Historian: patient Exam Limitations: no limitations Patient Subjective Stated Complaint: pt states "my chest started hurting a week ago." Triage Nursing Assessment: Pt ambulatory to bed by self, a&o x3, pt c/o L sided chest pain x1 and pain is worse when she takes a deep breath, pt denies fever, cough, sob, sore throat or any other flu like symptoms, pt has hx of tachycardia and type 2 DM, lungs clear throughout, vitals wnl Physician History: Patient is a 21-year-old female presents to our ED with complaint of left-sided chest pain. Patient has history of diabetes and is a smoker. Patient's chest pain started approximately 1 week ago. Pain is intermittent. Pain improved with pressure to the left chest. No trauma. No fever. Symptoms are mild to moderate in intensity. Patient denies history of the same. She voices no other complaints or concerns at this time. Portions of this note were created with voice recognition technology. There may be grammatical, spelling, punctuation or sound alike errors Timing/Duration: week(s) (1 week ago) Activities at Onset: none Quality: aching Location: other (Left chest) Chest Pain Radiation: no radiation Severity of Pain-Max: moderate Severity of Pain-Current: mild Modifying Factors: Improves With: other (Patient states lying on her left chest to improve symptoms.) Associated Symptoms: denies symptoms (No nausea vomiting or diaphoresis. No shortness of breath.) Prior Chest Pain/Cardiac Workup: no prior chest pain Nitro Today/Relief: no nitro taken today Aspirin Treatment Today: no aspirin today Allergies/Adverse Reactions: haloperidol [From Haldol] Allergy (Verified 07/01/22 21:50) haloperidol lactate [From Haldol] Allergy (Verified 07/01/22 21:50) sulfamethoxazole [From Bactrim] Allergy (Verified 07/01/22 21:50) trimethoprim [From Bactrim] Allergy (Verified 07/01/22 21:50) Home Medications: Bupropion HCl [Wellbutrin Xl] 1 tab PO DAILY 07/11/21 [History] Mecobalamin [B12 Active] 1 tab PO DAILY 07/11/21 [History] Semaglutide [Ozempic] 1 kit SQ WEEKLY 07/11/21 [History] Midodrine HCl 2.5 mg OINH DAILY 12/24/21 [History] Hx Tetanus, Diphtheria Vaccination/Date Given: Yes Hx Influenza Vaccination/Date Given: Yes Hx Pneumococcal Vaccination/Date Given: No Travel Risk - International Travel Have you traveled outside of the country in past 3 weeks: No - Coronavirus Screening Are you exhibiting any of the following symptoms?: No Close contact with a COVID-19 positive Pt in past 14-21 Days: No - Vaccine Status Have you recieved a Covid-19 vaccination: Yes 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[employer] - Vaccination Dates Date of 2cond Vaccination (if applicable): 04/2021 - Review of Systems Constitutional: No Symptoms, No Fever, No Chills Eyes: No Symptoms Ears, Nose, & Throat: No Symptoms Respiratory: No Symptoms, No Cough, No Dyspnea Cardiac: No Symptoms, No Chest Pain, No Edema, No Syncope Abdominal/Gastrointestinal: No Symptoms, No Abdominal Pain, No Nausea, No Vomiting, No Diarrhea Genitourinary Symptoms: No Symptoms, No Dysuria Musculoskeletal: No Symptoms, No Back Pain, No Neck Pain Skin: No Symptoms, No Rash Neurological: No Symptoms, No Dizziness, No Focal Weakness, No Sensory Changes Psychological: No Symptoms Endocrine: No Symptoms Hematologic/Lymphatic: No Symptoms Immunological/Allergic: No Symptoms All Other Systems: Reviewed and Negative - Past Medical History Pertinent Past Medical History: Yes Neurological History: No Pertinent History ENT History: No Pertinent History Cardiac History: No Pertinent History Respiratory History: Asthma Endocrine Medical History: Diabetes Type II Musculoskeletal History: No Pertinent History GI Medical History: No Pertinent History History: No Pertinent History Psycho-Social History: Anxiety, Attention Deficit Disorder Female Reproductive Disorders: No Pertinent History Other Medical History: AUTISM, OPPOSITIONAL DEFIANT DISORDER - Past Surgical History Past Surgical History: Yes Neuro Surgical History: No Pertinent History Cardiac: No Pertinent History Respiratory: No Pertinent History Gastrointestinal: Cholecystectomy Genitourinary: No Pertinent History Musculoskeletal: No Pertinent History Female Surgical History: No Pertinent History Other Surgical History: TONSILS AND ADENOIDS - Social History Smoking Status: Current every day smoker Exposure to second hand smoke: No Drug Use: none Patient Lives Alone: No - Female History Hx Last Menstrual Period: 06/22/2022 Hx Now: No - Nursing Vital Signs Nursing Vital Signs: Initial Vital Signs Temperature 97.6 F 07/01/22 21:50 Pulse Rate 97 H 07/01/22 21:50 Respiratory Rate 22 07/01/22 21:50 Blood Pressure 122/77 07/01/22 21:50 O2 Sat by Pulse Oximetry 100 07/01/22 21:50 Pain Scale Pain Intensity 7 - Physical Exam General Appearance: no apparent distress, alert Eye Exam: PERRL/EOMI, eyes nml inspection Ears, Nose, Throat Exam: normal ENT inspection, TMs normal, pharynx normal, moist mucous membranes Neck Exam: normal inspection, non-tender, supple, full range of motion Respiratory Exam: normal breath sounds, lungs clear, airway intact, No respiratory distress Cardiovascular Exam: regular rate/rhythm, normal heart sounds, normal peripheral pulses Gastrointestinal/Abdomen Exam: soft, No tenderness, No mass Back Exam: normal inspection, No CVA tenderness, No vertebral tenderness Extremity Exam: normal inspection, normal range of motion Neurologic Exam: alert, oriented x 3, cooperative, normal mood/affect, sensation nml, No motor deficits Skin Exam: normal color, warm, dry Lymphatic Exam: No adenopathy SpO2 Interpretation: normal SpO2: 99 O2 Delivery: Room Air - Course Nursing assessment & vital signs reviewed: Yes EKG Interpreted by Me: RATE (100), Sinus Tach, NORMAL AXIS, NORMAL INTERVALS - Radiology Exams Chest X-ray Interpretation: Interpreted by me Ordered Tests: Active Orders 24 hr Category Date Time Status Warp Spooler STAT Care 07/01/22 22:00 Active EKG-ER Only STAT Care 07/01/22 21:59 Active IV Insertion STAT Care 07/01/22 21:59 Active Pulse Oximetry (ED) STAT Care 07/01/22 21:59 Active CHEST 1 VIEW (PORTABLE) Stat Exams 07/01/22 22:00 Taken CBC W DIFF Stat Lab 07/01/22 22:15 Completed CMP Stat Lab 07/01/22 22:15 Completed D-DIMER QUANTITATIVE Stat Lab 07/01/22 22:15 Completed NT PRO BNP Stat Lab 07/01/22 22:15 Completed TROPONIN Q4H Lab 07/01/22 22:15 Completed TROPONIN Q4H Lab 07/02/22 00:35 Completed TROPONIN Q4H Lab 07/02/22 06:00 Ordered Urine Triage Profile Stat Lab 07/01/22 22:18 Completed Lab/Rad Data: Laboratory Result Diagrams 07/01/22 22:15 07/01/22 22:15 Laboratory Results 07/02/22 07/01/22 07/01/22 Range/Units 00:35 22:18 22:15 WBC (4.0-10.5) x10^3/uL RBC (4.1-5.4) x10^6/uL Hgb (12.0-16.0) g/dL Hct (35-47) % MCV (78-100) fL MCH (26-32) pg MCHC (32-36) g/dL RDW (11.5-14.0) % Plt Count (150-450) x10^3/uL MPV (7.5-11.0) fL Gran % (36.0-66.0) % Immature Gran % (Auto) (0.00-0.4) % Nucleat RBC Rel Count (0.00-0.1) % Eos # (Auto) (0-0.5) x10^3/uL Immature Gran # (Auto) (0.00-0.03) x10^3u/L Absolute Lymphs (auto) (1.0-4.6) x10^3/uL Absolute Monos (auto) (0.0-1.3) x10^3/uL Absolute Nucleated RBC (0.00-0.01) x10^3u/L Lymphocytes % (24.0-44.0) % Monocytes % (0.0-12.0) % Eosinophils % (0.00-5.0) % Basophils % (0.0-0.4) % Absolute Granulocytes (1.4-6.9) x10^3/uL Basophils # (0-0.4) x10^3/uL D-Dimer (0.0-0.50) mg/L Sodium (137-145) mmol/L Potassium (3.5-5.1) mmol/L Chloride (98-107) mmol/L Carbon Dioxide (22-30) mmol/L Anion Gap (5-15) MEQ/L BUN (7-17) mg/dL Creatinine (0.52-1.04) mg/dL Estimated GFR ML/MIN Glucose (74-106) mg/dL Calcium (8.4-10.2) mg/dL Total Bilirubin (0.2-1.3) mg/dL AST (14-36) U/L ALT (0-35) U/L Alkaline Phosphatase (38-126) U/L Troponin I < 0.012 < 0.012 (0.000-0.034) ng/mL NT-Pro-B Natriuret Pep (0-450) pg/mL Serum Total Protein (6.3-8.2) g/dL Albumin (3.5-5.0) g/dL Urine Opiates Level NEGATIVE (NEGATIVE) Ur Methadone NEGATIVE (NEGATIVE) Urine Barbiturates NEGATIVE (NEGATIVE) Ur Phencyclidine (PCP) NEGATIVE (NEGATIVE) Urine Amphetamine NEGATIVE (NEGATIVE) U Benzodiazepine Level NEGATIVE (NEGATIVE) Urine Cocaine NEGATIVE (NEGATIVE) Urine Marijuana (THC) NEGATIVE (NEGATIVE) 07/01/22 07/01/22 07/01/22 Range/Units 22:15 22:15 22:15 WBC 10.9 H (4.0-10.5) x10^3/uL RBC 4.68 (4.1-5.4) x10^6/uL Hgb 13.1 (12.0-16.0) g/dL Hct 41.0 (35-47) % MCV 87.6 (78-100) fL MCH 28.0 (26-32) pg MCHC 32.0 (32-36) g/dL RDW 12.6 (11.5-14.0) % Plt Count 270 (150-450) x10^3/uL MPV 11.4 H (7.5-11.0) fL Gran % 54.1 (36.0-66.0) % Immature Gran % (Auto) 0.4 (0.00-0.4) % Nucleat RBC Rel Count 0.0 (0.00-0.1) % Eos # (Auto) 0.16 (0-0.5) x10^3/uL Immature Gran # (Auto) 0.04 H (0.00-0.03) x10^3u/L Absolute Lymphs (auto) 3.93 (1.0-4.6) x10^3/uL Absolute Monos (auto) 0.82 (0.0-1.3) x10^3/uL Absolute Nucleated RBC 0.00 (0.00-0.01) x10^3u/L Lymphocytes % 36.1 (24.0-44.0) % Monocytes % 7.5 (0.0-12.0) % Eosinophils % 1.5 (0.00-5.0) % Basophils % 0.4 (0.0-0.4) % Absolute Granulocytes 5.90 (1.4-6.9) x10^3/uL Basophils # 0.04 (0-0.4) x10^3/uL D-Dimer < 0.19 (0.0-0.50) mg/L Sodium 137 (137-145) mmol/L Potassium 3.7 (3.5-5.1) mmol/L Chloride 103 (98-107) mmol/L Carbon Dioxide 25 (22-30) mmol/L Anion Gap 12.9 (5-15) MEQ/L BUN 14 (7-17) mg/dL Creatinine 0.65 (0.52-1.04) mg/dL Estimated GFR > 60.0 ML/MIN Glucose 88 (74-106) mg/dL Calcium 8.3 L (8.4-10.2) mg/dL Total Bilirubin 0.30 (0.2-1.3) mg/dL AST 16 (14-36) U/L ALT 14 (0-35) U/L Alkaline Phosphatase 69 (38-126) U/L Troponin I (0.000-0.034) ng/mL NT-Pro-B Natriuret Pep 16.8 (0-450) pg/mL Serum Total Protein 7.4 (6.3-8.2) g/dL Albumin 4.2 (3.5-5.0) g/dL Urine Opiates Level (NEGATIVE) Ur Methadone (NEGATIVE) Urine Barbiturates (NEGATIVE) Ur Phencyclidine (PCP) (NEGATIVE) Urine Amphetamine (NEGATIVE) U Benzodiazepine Level (NEGATIVE) Urine Cocaine (NEGATIVE) Urine Marijuana (THC) (NEGATIVE) - Progress Progress: improved Air Movement: good Progress Note: Patient reassessed. She is asymptomatic. Work-up negative. D-dimer negative. Troponin negative negative x2. Chest x-ray negative. Heart score is 2. No indication for admission. Vital stable. Patient agrees to follow-up with primary care doctor within 48 hours for evaluation. Portions of this note were created with voice recognition technology. There may be grammatical, spelling, punctuation or sound alike errors 11/29/22 01:16 Blood Culture(s) Obtained: No Antibiotics given: No Counseled pt/family regarding: lab results, diagnosis, need for follow-up, rad results - Departure Departure Disposition: Home Clinical Impression: Chest pain Condition: Stable Critical Care Time: No Referrals: MARIA LUISA GUNN [Primary Care Provider] - Follow up/PCP as directed Instructions: Chest Pain (DC) Additional Instructions: Discharge/Care Plan ANNA MARIE MASON was seen on 07/01/22 in the Emergency Room. The patient was counseled regarding Diagnosis,Lab results, Imaging studies, need for follow up and when to return to the Emergency Room. Prescriptions given: Discharge Note I have spoken with the patient and/or caregivers. I have explained the patient's condition, diagnosis and treatment plan based on the information available to me at this time. I have answered the patient's and/or caregiver's questions and addressed any concerns. The patient and/or caregivers have as good understanding of the patient's diagnosis, condition and treatment plan as can be expected at this point. The vital signs have been stable. The patient's condition is stable and appropriate for discharge from the emergency department. The patient will pursue further outpatient evaluation with the primary care physician or other designated or consulting physician as outlined in the discharge instructions. The patient and/or caregivers are agreeable to this plan of care and follow-up instructions have been explained in detail. The patient and/or caregivers have received these instruction. The patient/and or caregivers are aware that any significant change in condition or worsening of symptoms should prompt an immediate return to this or the closest emergency department or call 911.
[2022-07-01 22:43] LABS: ALBUMIN 4.2 g/dL (3.5-5.0); ALKALINE PHOSPHATASE 69 U/L (38-126); ANION GAP 12.9 MEQ/L (5-15); BLOOD UREA NITROGEN 14 mg/dL (7-17); CHLORIDE 103 mmol/L (98-107); Calcium 8.3 mg/dL (8.4-10.2); Carbon Dioxide 25 mmol/L (22-30); Creatinine 1 0.65 mg/dL (0.52-1.04); EST GLOMERULAR FILTRATION RATE > 60.0 ML/MIN; Glucose 88 mg/dL (74-106); NT PRO BNP 16.8 pg/mL (0-450); Potassium 3.7 mmol/L (3.5-5.1); SGOT/AST 16 U/L (14-36); SGPT/ALT 14 U/L (0-35); SODIUM 137 mmol/L (137-145); Total Protein 7.4 g/dL (6.3-8.2)
[2022-07-01 22:47] LABS: Amphetamine,Urine NEGATIVE (NEGATIVE); Barbiturate,Urine NEGATIVE (NEGATIVE); Benzodiazepine,Urine NEGATIVE (NEGATIVE); Cocaine,Urine NEGATIVE (NEGATIVE); Methadone,Urine NEGATIVE (NEGATIVE); Opiate,Urine NEGATIVE (NEGATIVE); PCP,Urine NEGATIVE (NEGATIVE); THC,Urine NEGATIVE (NEGATIVE)
[2022-07-02 01:11] VITALS: BP 101/65; PULSE 86
[2022-07-02 01:16] VITALS: O2SAT 99
--- NOTE | 2022-07-02 08:55 | XRAY ---
Indication: Chest pain. Comparison: December 24, 2021 Portable chest demonstrates normal heart, lungs, and bony thorax.
== END 2022-07-02 01:28 | disposition home or self-care (01) ==
LOC: ED 21:46
DX: R07.9 Chest pain, unspecified (principal); E11.9 Type 2 diabetes mellitus without complications; Z72.0 Tobacco use; Z79.85 Long-term (current) use of injectable non-insulin antidiabetic drugs; Z79.899 Other long term (current) drug therapy
CPT/HCPCS: 36000; 36415; 71045; 80053; 80307; 83880; 84484; 85025; 85379; 93005; 93041; 94760; 99284

== ENCOUNTER 2023-07-24 02:25 | Emergency (ER) | payer OTHER ==
[2023-07-24 02:49] VITALS: RESP 18; TEMP 97.3
[2023-07-24] MEDS ORDERED: TYLENOL 325 MG PO ONE (03:01)
[2023-07-24] MEDS ORDERED: TYLENOL 325 MG ONE (03:14)
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
[2023-07-24 04:32] VITALS: O2SAT 99
[2023-07-24 04:40] VITALS: BP 100/43; PULSE 75
== END 2023-07-24 04:40 | disposition home or self-care (01) ==
LOC: ED 02:25
DX: S20.212A Contusion of left front wall of thorax, initial encounter (principal); S29.012A Strain of muscle and tendon of back wall of thorax, initial encounter; V57.6XXA Passenger in pick-up truck or van injured in collision with fixed or stationary object in traffic accident, initial encounter; R91.1 Solitary pulmonary nodule; E11.9 Type 2 diabetes mellitus without complications; Z79.899 Other long term (current) drug therapy; Z72.0 Tobacco use
CPT/HCPCS: 71250; 99285; A9270-GY

== ENCOUNTER 2024-03-17 20:07 | Emergency (ER) | payer OTHER ==
[2024-03-17 20:20] LABS: HCG URINE TEST NEGATIVE (NEGATIVE)
[2024-03-17 20:22] VITALS: RESP 18; TEMP 98.9; O2SAT 99
--- NOTE | 2024-03-17 20:30 | ERPHSYRPT ---
- History of Present Illness Time Seen by Provider: 03/17/24 20:22 Source: patient Exam Limitations: no limitations Physician History: 23-year-old female presents emergency department for evaluation of dysuria that she has been experiencing for 2 days. Patient has a history of UTIs and states her symptoms are similar. Patient reports that her UTIs have been treated with doxycycline in the past. No other complaints. No back pain no fever. No nausea no vomiting. Patient otherwise feels well she voices no other complaints or concerns at this time. No active pain at this time. Patient declined pain medication Portions of this note were created with voice recognition technology. There may be grammatical, spelling, punctuation or sound alike errors Timing/Duration: today Severity: mild Associated Symptoms: denies symptoms Allergies/Adverse Reactions: haloperidol [From Haldol] Allergy (Verified 03/17/24 20:16) haloperidol lactate [From Haldol] Allergy (Verified 03/17/24 20:16) sulfamethoxazole [From Bactrim] Allergy (Verified 03/17/24 20:16) trimethoprim [From Bactrim] Allergy (Verified 03/17/24 20:16) Home Medications: Tirzepatide [Mounjaro] 7.5 mg SQ WEEKLY 03/17/24 [History] Hx Tetanus, Diphtheria Vaccination/Date Given: Yes Hx Influenza Vaccination/Date Given: No Hx Pneumococcal Vaccination/Date Given: No - Review of Systems Constitutional: No Symptoms, No Fever, No Chills Eyes: No Symptoms Ears, Nose, & Throat: No Symptoms Respiratory: No Symptoms, No Cough, No Dyspnea Cardiac: No Symptoms, No Chest Pain, No Edema, No Syncope Abdominal/Gastrointestinal: No Symptoms, No Abdominal Pain, No Nausea, No Vomiting, No Diarrhea Genitourinary Symptoms: No Symptoms, No Dysuria Musculoskeletal: No Symptoms, No Back Pain, No Neck Pain Skin: No Symptoms, No Rash Neurological: No Symptoms, No Dizziness, No Focal Weakness, No Sensory Changes Psychological: No Symptoms Endocrine: No Symptoms Hematologic/Lymphatic: No Symptoms Immunological/Allergic: No Symptoms All Other Systems: Reviewed and Negative - Past Medical History Pertinent Past Medical History: Yes Neurological History: No Pertinent History ENT History: No Pertinent History Cardiac History: No Pertinent History Respiratory History: Asthma Endocrine Medical History: Diabetes Type II Musculoskeletal History: No Pertinent History GI Medical History: No Pertinent History History: No Pertinent History Psycho-Social History: Anxiety, Attention Deficit Disorder Female Reproductive Disorders: No Pertinent History Other Medical History: AUTISM, OPPOSITIONAL DEFIANT DISORDER - Past Surgical History Past Surgical History: Yes Neuro Surgical History: No Pertinent History Cardiac: No Pertinent History Respiratory: No Pertinent History Gastrointestinal: Cholecystectomy Genitourinary: No Pertinent History Musculoskeletal: No Pertinent History Female Surgical History: No Pertinent History Other Surgical History: wisdom teeth TONSILS AND ADENOIDS - Female History Hx Last Menstrual Period: N/A - Social History Smoking Status: Current some day smoker Exposure to second hand smoke: No Drug Use: none Patient Lives Alone: No - Nursing Vital Signs Nursing Vital Signs: Initial Vital Signs Temperature 98.9 F 03/17/24 20:20 Pulse Rate 92 H 03/17/24 20:20 Respiratory Rate 18 03/17/24 20:20 Blood Pressure 131/91 03/17/24 20:20 O2 Sat by Pulse Oximetry 99 03/17/24 20:20 Pain Scale Pain Intensity 8 - Physical Exam General Appearance: no apparent distress, alert Eye Exam: PERRL/EOMI, eyes nml inspection Ears, Nose, Throat Exam: normal ENT inspection, moist mucous membranes Neck Exam: normal inspection, non-tender, supple, full range of motion Respiratory Exam: normal breath sounds, lungs clear, airway intact, No respiratory distress Cardiovascular Exam: regular rate/rhythm, normal heart sounds, normal peripheral pulses Gastrointestinal/Abdomen Exam: soft, normal bowel sounds, No tenderness, No mass Back Exam: normal inspection, normal range of motion, No CVA tenderness, No vertebral tenderness Extremity Exam: normal inspection, normal range of motion, pelvis stable Neurologic Exam: alert, oriented x 3, cooperative, normal mood/affect, sensation nml, No motor deficits Skin Exam: normal color, warm, dry, No rash Lymphatic Exam: No adenopathy SpO2 Interpretation: normal SpO2: 99 O2 Delivery: Room Air - Course Nursing assessment & vital signs reviewed: Yes Ordered Tests: Active Orders 24 hr Category Date Time Status CULTURE,URINE Stat Lab 03/17/24 20:16 Received HCG QUALITATIVE, URINE Stat Lab 03/17/24 20:16 Completed UA W/RFX UR CULTURE Stat Lab 03/17/24 20:16 Completed Medication Summary Discontinued Medications Generic Name Dose Route Start Last Admin Trade Name Freq PRN Reason Stop Dose Admin Nitrofurantoin Macrocrystals 100 mg 03/17/24 20:39 03/17/24 20:44 Nitrofurantoin Macro 100 Mg Capsule PO 03/17/24 20:40 100 mg STAT ONE Administration Nitrofurantoin Macrocrystals Confirm 03/17/24 20:43 Nitrofurantoin Macro 100 Mg Capsule Administered 03/17/24 20:44 Dose 100 mg .ROUTE .STK-MED ONE Lab/Rad Data: Laboratory Results 03/17/24 03/17/24 Range/Units 20:16 20:16 Urine Color Yellow (Yellow) Urine Appearance Cloudy A (Clear) Urine pH 5.5 (4.6-8.0) Ur Specific [place] >=1.030 A (1.005-1.030) Urine Protein 30 (Negative) Urine Glucose (UA) Negative (Negative) mg/dL Urine Ketones Trace A (Negative) Urine Blood Large A (Negative) Urine Nitrite Negative (Negative) Urine Bilirubin Negative (Negative) Urine Urobilinogen 1.0 A (0.2) mg/dL Ur Leukocyte Esterase Negative (Negative) U Hyaline Cast (Auto) NONE SEEN (0-2) /LPF Urine Microscopic RBC 0-2 (0-5) /HPF Urine Microscopic WBC 6-10 A (0-5) /HPF Ur Epithelial Cells Few (None Seen) /HPF Urine Bacteria Few A (None Seen) /HPF Urine Culture Reflexed YES (NO) Urine HCG, Qual NEGATIVE (NEGATIVE) - Progress Progress: improved Progress Note: 23-year-old female with a history of UTI presents to our ED with dysuria. Physical exam essentially nonremarkable. Patient also reports that she occasionally itches when taking antibiotics. Patient states she may have a yeast infection now. We will provide a prescription for Diflucan. 150 mg every other day as well as forward a prescription for Macrobid to patient's pharmacy. Patient also received a dose of Macrobid in our ED. Urine cultures pending. Patient agrees to follow-up with her primary care doctor within 48 hours. She voices no other complaints or concerns at this time. Portions of this note were created with voice recognition technology. There may be grammatical, spelling, punctuation or sound alike errors Complexity problem addressed is moderate acute complicated. No critical care ti me. Complex of data reviewed and analyzed is moderate. Test ordered chest reviewed results analyzed and correlated clinically with history and physical exam. Risk of complication and or risk of morbidity/mortality patient management is moderate. A prescription for Macrobid and Diflucan forwarded to patient's pharmacy. Vital stable. Time spent to discharge patient approximately 15 minutes. Plan of care established for shared decision making. No social determinants of health present to impede follow-up. Portions of this note were created with voice recognition technology. There may be grammatical, spelling, punctuation or sound alike errors 03/17/24 20:49 Counseled pt/family regarding: lab results, diagnosis, need for follow-up - Departure Departure Disposition: Home Clinical Impression: Dysuria, UTI (urinary tract infection) Condition: Stable Critical Care Time: No Referrals: VANNA PHILLIP, MANAGER LATIN [Primary Care Provider] - Follow up/PCP as directed Additional Instructions: Discharge/Care Plan ANNA MARIE MASON was seen on 03/17/24 in the Emergency Room. The patient was counseled regarding Diagnosis,Lab results, Imaging studies, need for follow up and when to return to the Emergency Room. Prescriptions given: Discharge Note I have spoken with the patient and/or caregivers. I have explained the patient's condition, diagnosis and treatment plan based on the information available to me at this time. I have answered the patient's and/or caregiver's questions and addressed any concerns. The patient and/or caregivers have as good understanding of the patient's diagnosis, condition and treatment plan as can be expected at this point. The vital signs have been stable. The patient's condition is stable and appropriate for discharge from the emergency department. The patient will pursue further outpatient evaluation with the primary care physician or other designated or consulting physician as outlined in the discharge instructions. The patient and/or caregivers are agreeable to this plan of care and follow-up instructions have been explained in detail. The patient and/or caregivers have received these instruction. The patient/and or caregivers are aware that any significant change in condition or worsening of symptoms should prompt an immediate return to this or the closest emergency department or call 911. Prescriptions: Fluconazole [Diflucan ] 150 mg PO CLARIFY 2 Days #2 tablet Nitrofurantoin Macro 100 mg [Macrobid 100MG Capsule] 100 mg PO BID 7 Days #14 cap
[2024-03-17 20:33] LABS: Appearance Cloudy (Clear); Bilirubin Negative (Negative); Blood Large (Negative); Epithelial Cells Few /HPF (None Seen); Glucose, Urine Negative (Negative); Hyaline Casts NONE SEEN /LPF (0-2); Ketones Trace (Negative); Leukocyte Esterase Negative (Negative); Nitrite Negative (Negative); Ph 5.5 (4.6-8.0); Protein,Urine Dip 30 (Negative); Specific Gravity >=1.030 (1.005-1.030)
[2024-03-17 20:34] LABS: ADD URINE CULTURE? YES (NO); Bacteria Few /HPF (None Seen); RBC 0-2 /HPF (0-5)
[2024-03-17] MEDS ORDERED: Macrobid 100MG Capsule ONE (20:43)
[2024-03-17] MEDS: Macrobid 100MG Capsule PO ONE (20:44)
[2024-03-17 20:54] VITALS: BP 133/88; PULSE 77
== END 2024-03-17 20:57 | disposition home or self-care (01) ==
LOC: ED 20:07
DX: N39.0 Urinary tract infection, site not specified (principal); R30.0 Dysuria; E11.9 Type 2 diabetes mellitus without complications; Z79.85 Long-term (current) use of injectable non-insulin antidiabetic drugs; Z79.899 Other long term (current) drug therapy; Z72.0 Tobacco use
CPT/HCPCS: 81001; 81025; 87086; 99283; A9270-GY